=== PATIENT | male | born 1975 ===

== ENCOUNTER 2020-11-25 14:15 | Emergency (ER) | payer OTHER ==
--- NOTE | 2020-11-25 14:25 | EDM.PDOC ---
ED HPI GENERAL MEDICAL PROBLEM - General Chief Complaint: Lower Extremity Injury/Pain Stated Complaint: HURT RT ANKLE Time Seen by Provider: 11/25/20 14:17 Source of Information: Reports: Patient History Limitations: Reports: No Limitations - History of Present Illness INITIAL COMMENTS - FREE TEXT/NARRATIVE: HISTORY AND PHYSICAL: History of present illness: Patient is a 44-year-old male who presents to the emergency room with complaints of right medial heel and ankle pain. He states he was stepping out of the vehicle when he noticed the pain. Did not fall, rolled his ankle or have any injury associated with the pain. Patient denies any fever, chills, headache, change in vision, syncope or near syncope. Denies any chest pain, back pain, shortness of breath or cough. Denies any abdominal pain, nausea, vomiting, diarrhea, constipation or dysuria. Has not noted any blood in urine or stool. Patient has been eating and drinking appropriately. Review of systems: As per history of present illness and below otherwise all systems reviewed and negative. Past medical history: As per history of present illness and as reviewed below otherwise noncontributory. Surgical history: As per history of present illness and as reviewed below otherwise noncontributory. Social history: See social history for further information Family history: As per history of present illness and as reviewed below otherwise noncontributory. Physical exam: General: Well developed and well nourished 44-year-old male. Alert and orientated x 3. Nontoxic in appearance and in no acute distress. Vital signs are stable and have been reviewed by me. Nursing notes were reviewed. HEENT: Atraumatic, normocephalic, pupils equal and reactive bilaterally, negative for conjunctival pallor or scleral icterus, mucous membranes moist, trachea midline. No drooling or trismus noted. No meningeal signs. No hot potato voice noted. Lungs: Clear to auscultation bilaterally. No wheezes, rales, or rhonchi. Chest nontender. Normal work of breathing, no accessory muscles used. Heart: S1S2, regular rate and rhythm without overt murmur, gallops, or rubs. No JVD. No peripheral edema Abdomen: Soft, nondistended, nontender. Skin: Intact, warm, dry. No lesions or rashes noted. Hematologic: No petechiae or purpra. Mucosa appropriate color and normal nail bed color and refill. Extremities: Atraumatic, moves all extremities per self without difficulty or deficits, negative for cords or calf pain. No concern for Achilles tear/injury. Strong pedal and pretibial pulse. Neurovascular unremarkable. Neuro: Awake, alert, oriented. Cranial nerves II through XII unremarkable. Cerebellum unremarkable. Motor and sensory unremarkable throughout. Exam nonfocal. Psychiatric: Mood and affect are appropriate. Normal thought process. Answering questions appropriately. Notes: *This patient was seen and evaluated during the 2019 SARS-CoV-2 novel coronavirus pandemic period. Community viral transmission is ongoing at time of this encounter and the emergency department is operating under pandemic response procedures. No sign of calcaneal fracture or stress fracture. There is a small posterior calcaneal spur. I have talked with the patient about today's findings, in addition to providing specific details for plan of care. Encouraged him to follow-up with podiatry. Reassessment at the time of disposition demonstrates that the patient is in no acute distress. The patient is stable for discharge, counseling was provided and we discussed in great detail signs and symptoms that would prompt them to return to the Emergency Department. Medication, follow up and supportive care measures were reviewed and discussed. Voices understanding and is agreeable to plan of care. Denies any further questions or concerns at this time. Diagnostics: X-ray Therapeutics: None Prescription: Diclofenac Impression: Calcaneous pain, right Plan: 1. You were evaluated today on an emergent basis. Your x-ray shows no sign of calcaneal fracture or stress fracture. There is a small posterior calcaneal spur. Rest, ice and elevate as able. 2. You can alternate Tylenol and ibuprofen as needed for pain and fever management. 3. We encourage you to follow up with podiatry in the next few days for re- evaluation and further care/management. 4. If your symptoms should worsen, new symptoms develop or any of the signs and symptoms we discussed should arise please return to the emergency room or call 911 (if needed). Definitive disposition and diagnosis as appropriate pending reevaluation and review of above. right lateral foot Pain Score (Numeric/FACES): 8 - Related Data Allergies Allergy/AdvReac Type Severity Reaction Status Date / Time naproxen Allergy Mild Hives Verified 11/25/20 14:36 Home Meds: Home Meds Fish Oil/[place]-3 Fatty Acids [Fish Oil 1,000 MG] 11/25/20 [History] Multivitamins [Children's Chewable Vitamin] 11/25/20 [History] traMADol [Ultram] 50 mg PO Q4H PRN #15 tab 11/25/20 [Rx] Past Medical History - Past Health History Medical/Surgical History: Denies Medical/Surgical History Social & Family History - Family History Family Medical History: No Pertinent Family History Review of Systems - Review of Systems Review Of Systems: Comprehensive ROS is negative, except as noted in HPI. ED EXAM, GENERAL - Physical Exam Exam: See Below (See dictation) Course - Vital Signs Last Recorded V/S: Last Vital Signs Temp 97.6 F 11/25/20 14:29 Pulse 122 H 11/25/20 14:29 Resp 20 11/25/20 14:29 BP 157/115 H 11/25/20 14:29 Pulse Ox 96 11/25/20 14:29 - Orders/Labs/Meds Orders: Active Orders 24 hr Category Date Time Status EKG Documentation Completion [RC] STAT Care 11/25/20 14:43 Active Departure - Departure Time of Disposition: 15:24 Disposition: Home, Self-Care 01 Clinical Impression: Calcaneal spur of right foot - Discharge Information Prescriptions: traMADol [Ultram] 50 mg PO Q4H PRN #15 tab PRN Reason: Pain Instructions: Heel Spur Referrals: Pancho Rendon MD [Primary Care Provider] - Forms: ED Department Discharge Additional Instructions: The following information is given to patients seen in the emergency department who are being discharged to home. This information is to outline your options for follow-up care. We provide all patients seen in our emergency department with a follow-up referral. The need for follow-up, as well as the timing and circumstances, are variable depending upon the specifics of your emergency department visit. If you don't have a primary care physician on staff, we will provide you with a referral. We always advise you to contact your personal physician following an emergency department visit to inform them of the circumstance of the visit and for follow-up with them and/or the need for any referrals to a consulting specialist. The emergency department will also refer you to a specialist when appropriate. This referral assures that you have the opportunity for follow-up care with a specialist. All of these measure are taken in an effort to provide you with optimal care, which includes your follow-up. Under all circumstances we always encourage you to contact your private physician who remains a resource for coordinating your care. When calling for follow-up care, please make the office aware that this follow-up is from your recent emergency room visit. If for any reason you are refused follow-up, please contact the [facility] Emergency Department at and asked to speak to the emergency department charge nurse. [facility] [address] [place] [address] [id number] [facility] [address] [place] [id number] Thank you for choosing the [facility] emergency department in [place] for your medical needs today. It was a pleasure caring for you. Today you were seen in the emergency department for foot and ankle pain. 1. You were evaluated today on an emergent basis. Your x-ray shows no sign of calcaneal fracture or stress fracture. There is a small posterior calcaneal spur. Rest, ice and elevate as able. 2. You can alternate Tylenol and ibuprofen as needed for pain and fever management. 3. We encourage you to follow up with podiatry in the next few days for re-evaluation and further care/management. 4. If your symptoms should worsen, new symptoms develop or any of the signs and symptoms we discussed should arise please return to the emergency room or call 911 (if needed). Sepsis Event Note (ED) - Focused Exam Vital Signs: Vital Signs Temp Pulse Resp BP Pulse Ox 11/25/20 14:29 97.6 F 122 H 20 157/115 H 96 - My Orders Last 24 Hours: My Active Orders 11/25/20 14:43 EKG Documentation Completion [RC] STAT - Assessment/Plan Last 24 Hours: My Active Orders 11/25/20 14:43 EKG Documentation Completion [RC] STAT
--- NOTE | 2020-11-25 14:55 | PCM.SN.2 ---
- Free Text/Narrative Note: KG done because of tachycardia at 2:48 PM sinus tachycardia heart rate 115 [place] 166 QT duration 429 [place] 44. Normal QRS ST and T. Compared to prior 2 years ago or more there is no change except for rate. Impression tachycardia but no obvious injury
--- NOTE | 2020-11-25 15:15 | CR ---
HISTORY: Pain during weight-bearing. Strenuous occupation. COMPARISON: None available. FINDINGS: Lateral and os calcis views of the right calcaneus were obtained. There is no fracture or dislocation. There is no sign of any calcaneal stress fracture. No radiopaque foreign bodies are seen in the soft tissues. There is a small posterior calcaneal spur. IMPRESSION: No sign of calcaneal fracture or stress fracture Small posterior calcaneal spur. Dictated by Francisco Bess MD @ 11/25/2020 3:13:[address] Francisco Bess @ Nov 25 2020 3:13PM
--- NOTE | 2020-11-25 15:19 | CR ---
INDICATION: Pain with weight-bearing TECHNIQUE: Three views right ankle COMPARISON: None FINDINGS: Bones: Alignment is normal. No fractures. Plantar calcaneal spur. Joint spaces: Unremarkable. Soft tissues: Unremarkable. IMPRESSION: No acute findings. Plantar calcaneal spur. Dictated by Rober Samaniego MD @ 11/25/2020 3:17:[address] Rober Samaniego @ Nov 25 2020 3:17PM
[2020-11-25 15:50] VITALS: BP 142/82; PULSE 120
== END 2020-11-25 15:43 | disposition home or self-care (01) ==
LOC: MW.ED 14:15
DX: M77.31 Calcaneal spur, right foot (principal); Z88.5 Allergy status to narcotic agent
CPT/HCPCS: 73610-26-RT; 73610-RT; 73650-26-RT; 73650-RT; 93005; 99283; 99283-25